=== PATIENT | female | born 1970 | race Caucasian/White ===

== ENCOUNTER 2018-07-20 12:46 | Emergency (ER) | payer OTHER ==
[~2018-07-20] VITALS: Wt 60.0 kg
[~2018-07-20 12:46] MED LIST: FURO40TA4 PO; OMEP20CA16 PO; SPIR50TA PO
[2018-07-20] MEDS ORDERED: SOD CHLORIDE 0.9% 1,000 ML IV STA (12:53)
--- NOTE | 2018-07-20 13:29 | ERD ---
ER Documentation Chief Complaint Chief Complaint Shaking episode, altered mental status HPI This is a 47-year-old female with a past medical history of alcoholic cirrhosis requiring paracenteses in the past, asthma, gastritis/GERD, previous episodes of GI bleeding who is presenting today for altered mentation. The patient reportedly went to work and seemed fine this morning. She went out to her car to go get something but did not come back and side. The coworkers were worried about her, so they found her altered in her van. An ambulance was called. In route to the hospital, the paramedics witnessed several generalized tonic-clonic shaking episodes. The patient was given a total of 10 mg of Versed IV prior to arrival. The patient is moving all extremities without difficulty, but she is confused and currently unable to answer questions. According to the patient's family, the patient has had a headache for several days. History and physical is limited secondary to altered mentation. ROS Limited secondary to altered mentation. Medications Home Meds Reported Medications Albuterol Sulfate* (Ventolin HFA*) 18 Gm Hfa.aer.ad, 2 PUFF INHALATION Q4H, #1 INHALER 07/20/18 Discontinued Reported Medications Omeprazole* (Omeprazole*) 20 Mg Capsule.dr, 20 MG PO DAILY 09/20/12 Spironolactone* (Aldactone*) 50 Mg Tablet, 50 MG PO DAILY 09/20/12 Furosemide (Lasix) 40 Mg Tab, 40 MG PO DAILY 09/20/12 Allergies Allergies: Coded Allergies: No Known Allergies (Verified Allergy, Unknown, 07/20/18) PMhx/Soc History of Surgery: Yes () Anesthesia Reaction: No Hx Neurological Disorder: No Hx Respiratory Disorders: No Hx Cardiac Disorders: No Hx Psychiatric Problems: No Hx Miscellaneous Medical Probl: Yes (EDEMA IN ABDOMEN AND FEET) Hx Alcohol Use: Yes (OCCASIONAL) Hx Substance Use: No Hx Tobacco Use: No FmHx Unable to obtain secondary to altered mentation. Physical Exam Vitals Vital Signs Date Temp Pulse Resp B/P (MAP) Pulse Ox O2 O2 Flow FiO2 Time Delivery Rate 07/20/18 85 18 154/83 100 Room Air 15:00 (106) 07/20/18 78 18 136/77 100 Room Air 14:30 (96) 07/20/18 78 14 139/57 98 Room Air 14:00 (84) 07/20/18 98.6 105 20 143/82 98 13:34 (102) Physical Exam Const: No apparent distress, well-developed, well-nourished Head: Normocephalic, Atraumatic Eyes: Normal Conjunctiva. No scleral icterus. Pupils equal, round and reactive to light ENT: Normal External Ears, Nose and Mouth. Abrasions to her tongue. Neck: Trachea midline. No palpable masses. No step-offs or deformities to the cervical spine. Resp: Clear to auscultation bilaterally, No wheezes, rales or rhonchi Cardio: Regular rate and rhythm. No murmurs, rubs or gallops Abd: Soft, non tender, non distended. Normal bowel sounds Skin: No petechiae or rashes Back: No step-offs or deformities. Ext: No cyanosis, or edema Neur: Eyes are closed. Patient makes incomprehensible sounds. Patient localizes pain. GCS 8. Result Diagram: 07/20/18 1300 07/20/18 1259 Results 24 hrs Laboratory Tests Test 07/20/18 12:59 07/20/18 13:00 07/20/18 13:20 07/20/18 13:32 Sodium Level 139 mmol/L Potassium Level 3.7 mmol/L Chloride Level 101 mmol/L Carbon Dioxide 26 mmol/L Level Anion Gap 12 Blood Urea 7 mg/dl Nitrogen Creatinine 0.49 mg/dl Est Glomerular > 60 mL/min Filtrat Rate mL/min Glucose Level 132 mg/dl Calcium Level 9.9 mg/dl Ethyl Alcohol < 10.0 mg/dl Level White Blood Count 4.0 10^3/ul Red Blood Count 4.20 10^6/ul Hemoglobin 12.8 g/dl Hematocrit 37.4 % Mean Corpuscular 89.0 fl Volume Mean Corpuscular 30.5 pg Hemoglobin Mean Corpuscular 34.2 g/dl Hemoglobin Concen t Red Cell 15.0 % Distribution Width Platelet Count 62 10^3/UL Mean Platelet 10.5 fl Volume Immature 0.500 % Granulocytes % Neutrophils % 72.6 % Lymphocytes % 16.8 % Monocytes % 8.9 % Eosinophils % 0.7 % Basophils % 0.5 % Nucleated Red 0.0 /100WBC Blood Cells % Immature 0.020 10^3/ul Granulocytes # Neutrophils # 2.9 10^3/ul Lymphocytes # 0.7 10^3/ul Monocytes # 0.4 10^3/ul Eosinophils # 0.0 10^3/ul Basophils # 0.0 10^3/ul Nucleated Red 0.0 10^3/ul Blood Cells # Urine Color YELLOW Urine Clarity CLEAR Urine pH 6.0 Urine Specific 1.012 [place] Urine Ketones TRACE mg/dL Urine Nitrite NEGATIVE mg/dL Urine Bilirubin NEGATIVE mg/dL Urine 2+ mg/dL Urobilinogen Urine Leukocyte NEGATIVE [place]/ul Esterase Urine Microscopic 4 /HPF RBC Urine Microscopic 4 /HPF WBC Urine Bacteria FEW /HPF Urine Mucus MANY /HPF Urine Hemoglobin 1+ mg/dL Urine Glucose NEGATIVE mg/dL Urine Total NEGATIVE mg/dl Protein Urine Opiates Negative Screen Urine Negative Barbiturates Urine Negative Amphetamines Screen Urine Positive Benzodiazepines Screen Urine Cocaine Negative Screen Urine Negative Cannabinoids POC Beta HCG, NEGATIVE Qualitative Test 07/20/18 13:36 Prothrombin Time 17.6 Sec Prothrombin Time 1.4 Ratio INR International 1.44 Normalized Ratio Total Bilirubin 4.9 mg/dl Direct Bilirubin 0.00 mg/dl Indirect 4.9 mg/dl Bilirubin Aspartate Amino 114 IU/L Transf (AST/SGOT) Alanine 55 IU/L Aminotransferase (ALT/SGPT) Alkaline 72 IU/L Phosphatase Ammonia 20 umol/l Total Protein 7.9 g/dl Albumin 4.0 g/dl Current Medications Medications Dose Sig/[place] Start Time Status Last (Trade) Ordered Route PRN Stop Time Admin Dose Reason Admin Sodium 1,000 ml @ Q1H STAT 07/20/18 DC 07/20/18 Chloride 1,000 mls/hr IV 12:53 14:26 07/20/18 13:52 100 ml @ ONCE ONCE 07/20/18 DC 07/20/18 Levetiracetam 400 mls/hr IVPB 15:00 15:02 07/20/18 15:00 Sodium 250 ml @ 0 Q0M ONCE 07/20/18 DC Chloride mls/hr IV* 14:44 07/20/18 14:48 Ondansetron 4 mg ER BRIDGE 07/20/18 HCl (Zofran PRN IV 15:00 Inj) NAUSEA/VOMITI 07/21/18 14:59 NG 650 mg ER BRIDGE 07/20/18 Acetaminophen PRN PO 15:00 (Tylenol .MILD PAIN 4/12/19 14:59 Tab) 1-3 OR TEMP Sodium 1,000 ml @ Q20H IV 07/20/18 DC Chloride 50 mls/hr 14:52 07/20/18 15:38 IV Flush 3 ml PER 07/20/18 (NS 3 ml) PROTOCOL IV 15:00 Ondansetron 4 mg Q6H PRN 07/20/18 HCl (Zofran IV 15:00 Inj) NAUSEA/VOMITI NG 40 mg DAILY@06 07/21/18 Pantoprazole IV 06:00 (Protonix Iv) 100 ml @ Q12 IVPB 07/20/18 Levetiracetam 400 mls/hr 23:00 Lorazepam 2 mg Q10MIN PRN 07/20/18 (Ativan) IV seizure 15:00 Labetalol 10 mg Q4 PRN IV 07/20/18 HCl sbp >160 15:00 (Labetalol) Sodium 0 ml @ 0 Q0M ONCE 07/20/18 DC Chloride mls/hr IV 15:21 07/20/18 15:22 IV Flush 10 ml STK-MED 07/20/18 DC 07/20/18 (NS 10 ml) ONCE .ROUTE 15:27 15:27 07/20/18 15:28 Sodium 100 ml @ ud STK-MED 07/20/18 DC 07/20/18 Chloride ONCE .ROUTE 15:27 15:27 07/20/18 15:28 Iohexol 100 ml @ ud STK-MED 07/20/18 DC 07/20/18 ONCE .ROUTE 15:27 15:27 07/20/18 15:28 Albuterol/ 3 ml Q2H RESP 07/20/18 Ipratropium THERAPY PRN 15:30 (Duoneb) HHN shortness of breath Sodium 1,000 ml @ Q20H IV 07/20/18 Chloride 50 mls/hr 16:00 54.5 ml @ ONCE ONCE 07/20/18 Desmopressin 109 mls/hr IVPB 17:30 Acetate 18 07/20/18 17:59 mcg/ Sodium Chloride Procedures/MDM MDM The patient's presentation warrants further investigation. Previous medical re cords, if available, were reviewed. LABS The patient's laboratory testing was obtained and reviewed. No emergent treatment was required unless described below. CBC: No E/o systemic infection or severe anemia. Leukopenia and thrombocytopenia, consistent with alcoholic liver disease. Chemistry: No E/o severe acidosis or alkalosis or renal failure or liver disease or diabetic ketoacidosis INR: Slightly elevated at 1.44 Ammonia: Within normal limits Urine: No E/o acute infection or hematuria Tox: No E/o alcohol abuse. No E/o illicit drug use. EKG EKG read by me: Rate/Rhythm: Regular rate and rhythm at a rate of 87 bpm Intervals: Normal [place]: Normal Impression: No evidence of acute ischemia or arrhythmia IMAGING Imaging and Radiology interpretation reviewed. CXR FINDINGS: The heart and mediastinum are within normal limits. The lungs are clear. There is no pleural effusion or pneumothorax. There is a healed left mid to distal clavicular fracture. IMPRESSION: No acute disease. Electronically viewed and signed by .Andrew Salter MD, MD on 07/20/2018 13:18 CT Head FINDINGS: There is acute interparenchymal hemorrhage involving the inferior and anterior aspect of right lentiform nucleus extending to the posterior aspect of frontal lobe with associated moderate peripheral edema. There is approximately 3 mm leftward midline shift. There is no hydrocephalus. There is no extra-axial fluid collection. The ventricles and sulci are normal in size and configuration. The density of the brain is otherwise normal, and the yusuf white matter differentiation appears well-preserved. The visualized paranasal sinuses and osseous structures are grossly unremarkable. IMPRESSION: Acute interparenchymal hemorrhage involving the inferior and anterior aspect of right lentiform nucleus extending to the posterior frontal lobe with associated moderate peripheral edema. Leftward midline shift of 3 mm[address] Findings discussed with Dr. Epstein at 02:30 p.m. on 07/20/2018. Electronically viewed and signed by Physician Kieran on 07/20/2018 14:49 TREATMENT/DISPOSITION The patient presents with altered mentation and concerns of a seizure event. The patient CT of the head reveals an acute right intraparenchymal hemorrhage with expansion and shift. The patient was ordered FFP, platelets and DDAVP to help with the bleeding. The patient was also given Keppra in the emergency department for seizure prophylaxis. While in the emergency department, the patient's mentation improved. She was tired but easily arousable. She was verbal and oriented x1. As the GCS is improving, I do not feel the patient requires intubation emergently. The patient's alcohol level is currently negative. She does have a history of alcoholic cirrhosis, but the family reports that she has not had any alcohol in several years. I do not suspect an alcohol withdrawal seizure. The patient is postictal in the emergency department. I have decreased suspicion for an infectious process. The patient is afebrile. The patient does have a mild leukopenia, but I suspect that this is related to her alcohol abuse over a systemic infection. I had initially intended to admit the patient to the ICU, as the radiologist did not feel that this was related to cerebral aneurysm or vascular injury. I discussed the case with the on-call neurosurgeon, Dr. Mg, who recommended that we emergently perform a CTA of the head and neck to confirm this. He read the CTA study, which was concerning for an cerebral AV malformation, which is likely the source of her bleeding. He recommended that the patient be transferred to [facility] for higher level of care. TRANSFER At this time, I feel that the patient requires admission for further evaluation and management. Dr. Mg also works at [facility] and accepted the patient to the neuro ICU at [facility]. Disclaimer: Inadvertent spelling and grammatical errors are likely due to EHR/dictation software use and do not reflect on the overall quality of patient care. Note that the electronic time recorded on this note does not necessarily reflect the actual time of the patient encounter. CRITICAL CARE NOTE Time: 40 minutes excluding all billable procedures. Treatments/Evaluations: The patient was at risk of hemodynamic compromise. Timing of critical care involved close serial monitoring, evaluation of the patient's medical record including previous records & current laboratory/imaging studies, potential interventions for prevention of hemodynamic/ cardiopulmonary/ neurologic compromise, maintaining tight fluid balance, and any discussions with the family and/or consultants regarding the patient's status and prognosis. Departure Diagnosis: Primary Impression: Intraparenchymal hemorrhage of brain Additional Impressions: Seizure Altered mental status Altered mental status type: unspecified Qualified Codes: R41.82 - Altered mental status, unspecified Alcoholic cirrhosis Ascites presence: without ascites Qualified Codes: K70.30 - Alcoholic cirrhosis of liver without ascites Leukopenia Leukopenia type: unspecified Qualified Codes: D72.819 - Decreased white blood cell count, unspecified Thrombocytopenia Cerebral AV malformation Hyperbilirubinemia Transaminitis Elevated INR Condition: Critical ARA EPSTEIN MD Jul 20, 2018 13:29
[2018-07-20] MEDS ORDERED: ALBU18HF INHALATION (14:42)
[2018-07-20] MEDS ORDERED: SOD CHLORIDE 0.9% 250 ML IV* ONE (14:44)
[2018-07-20] MEDS ORDERED: SOD CHLORIDE 0.9% 1,000 ML IV SCH (14:52)
[2018-07-20] MEDS ORDERED: LABETALOL HCL 20MG INJ IV PRN (15:00)
[2018-07-20] MEDS ORDERED: ACETAMINOPHEN 325 MG TAB PO PRN (15:00)
[2018-07-20] MEDS ORDERED: LORAZEPAM 2 MG INJ IV PRN (15:00)
[2018-07-20] MEDS ORDERED: LEVETIRACETAM 1000 MG (PMX) 100 ML IVPB ONE (15:00)
[2018-07-20] MEDS ORDERED: NACL 0.9% 3 ML SYG IV SCH (15:00)
[2018-07-20] MEDS ORDERED: ONDANSETRON 4 MG INJ IV PRN ×2 (15:00)
[2018-07-20] MEDS ORDERED: SOD CHLORIDE 0.9% 0 ML IV ONE (15:21)
[2018-07-20] MEDS ORDERED: SOD CHLORIDE 0.9% 100 ML ONE (15:27)
[2018-07-20] MEDS ORDERED: IOHEXOL 100 ML ONE (15:27)
[2018-07-20] MEDS ORDERED: ALBUTEROL/IPRATROPIUM (NEB) 3 ML AMP HHN PRN (15:30)
--- NOTE | 2018-07-20 15:46 | HP ---
Date/Time of Note Date/Time of Note DATE: 07/20/18 TIME: 15:46 Assessment/Plan VTE Prophylaxis Pharmacological prophylaxis: other Lines/Catheters IV C[facility]ter Type [facility]from [facility]): Saline Lock Assessment/Plan Hospital Course Patient is a female the past medical history significant for alcoholic liver cirrhosis, asthma, history of GI bleed, GERD who presents to [facility] for brain bleed. Patient was fine this morning and went to work as usual. Patient apparently went out to her car from other coworkers and did not return. Patient was subsequently found by passerby passed out in her van. Ambulance was called and on route to the hospital paramedics witnessed several generalized tonic-clonic seizures. Patient currently is drowsy however is able to answer yes or no questions although slowly. HPI is difficult to rece saw as patient is still mildly altered. According to patient at bedside the patient has not drink alcohol in quite a while. Objective Physical exam General: Patient is laying in bed and answers questions with yes or no very slowly Mentation: Patient is not currently oriented drowsy but arousable,, Head: Normocephalic atraumatic Eyes: EOMI, pupils reactive to light Neck: Supple, nontender, midline Respiratory: Clear to auscultation bilaterally Cardiovascular: regular rate, no obvious murmurs Gastrointestinal: non-tender to palpation, bowel sounds heard. Neurological: Moves all extremities spontaneously, but left upper extremity and left lower extremity is slightly weaker than the right. Skin: No new skin lesions Assessment and plan Acute intraparenchymal hemorrhage -Inferior and anterior aspect of the right lentiform nucleus extending to the posterior aspect of frontal lobe with edema with a 3 mm midline shift -neurosurgery, Dr. Mg, called, wants CT angio to evaluate for vascular issues before admission, if aneurysm is likely, patient will be transferred to higher level of care -The patient was mildly drowsy on evaluation however she did receive Versed on entry into the ED so unsure whether or not this is from medication or from the brain bleed -Neurology, Dr. Segura, consulted -Keep blood pressure normotensive -PPI -N.p.o. -Neurosurgery recommendations Tonic-clonic movement -Seizure versus other shaking -As needed Ativan -Keppra IV -Neurology consultation pending Alcoholic liver cirrhosis -Elevated bilirubin -Patient on spironolactone and Lasix at home, hold for now -Chronic issue, monitor closely Asthma -DuoNeb as needed GERD -PPI Disposition -Awaiting results of CT angiogram, possible transfer, otherwise, will go to our ICU with neurosurgeon and neurology consultation. Result Diagram: 07/20/18 1300 07/20/18 1259 Results 24hrs Laboratory Tests Test 07/20/18 12:59 07/20/18 13:00 07/20/18 13:20 07/20/18 13:32 Sodium Level 139 Potassium Level 3.7 Chloride Level 101 Carbon Dioxide Level 26 Anion Gap 12 Blood Urea Nitrogen 7 Creatinine 0.49 Est Glomerular > 60 Filtrat Rate mL/min Glucose Level 132 Calcium Level 9.9 Ethyl Alcohol Level < 10.0 H White Blood Count 4.0 L Red Blood Count 4.20 Hemoglobin 12.8 Hematocrit 37.4 Mean Corpuscular 89.0 Volume Mean Corpuscular 30.5 Hemoglobin Mean Corpuscular 34.2 Hemoglobin Concent Red Cell 15.0 H Distribution Width Platelet Count 62 L Mean Platelet Volume 10.5 H Immature 0.500 H Granulocytes % Neutrophils % 72.6 Lymphocytes % 16.8 Monocytes % 8.9 Eosinophils % 0.7 Basophils % 0.5 Nucleated Red Blood 0.0 Cells % Immature 0.020 Granulocytes # Neutrophils # 2.9 Lymphocytes # 0.7 L Monocytes # 0.4 Eosinophils # 0.0 Basophils # 0.0 Nucleated Red Blood 0.0 Cells # Urine Color YELLOW Urine Clarity CLEAR Urine pH 6.0 Urine Specific 1.012 [place] Urine Ketones TRACE A Urine Nitrite NEGATIVE Urine Bilirubin NEGATIVE Urine Urobilinogen 2+ H Urine Leukocyte NEGATIVE Esterase Urine Microscopic 4 RBC Urine Microscopic 4 WBC Urine Bacteria FEW A Urine Mucus MANY A Urine Hemoglobin 1+ H Urine Glucose NEGATIVE Urine Total Protein NEGATIVE Urine Opiates Screen Negative Urine Barbiturates Negative Urine Amphetamines Negative Screen Urine Positive Benzodiazepines Screen Urine Cocaine Screen Negative Urine Cannabinoids Negative POC Beta HCG, NEGATIVE Qualitative Test 07/20/18 13:36 Prothrombin Time 17.6 H Prothrombin Time 1.4 Ratio INR International 1.44 Normalized Ratio Total Bilirubin 4.9 H Direct Bilirubin 0.00 Indirect Bilirubin 4.9 H Aspartate Amino 114 H Transf (AST/SGOT) Alanine 55 Aminotransferase (AL T/SGPT) Alkaline Phosphatase 72 Ammonia 20 Total Protein 7.9 Albumin 4.0 HPI/ROS Admit Date/Time Admit Date/Time PMH/Family/Social Past Medical History Medications Current Medications Ondansetron HCl (Zofran Inj) 4 mg ER BRIDGE PRN IV NAUSEA/VOMITING; Start 07/20/18 at 15:00; Stop 07/21/18 at 14:59 Acetaminophen (Tylenol Tab) 650 mg ER BRIDGE PRN PO .MILD PAIN 1-3 OR TEMP; Start 07/20/18 at 15:00; Stop 07/21/18 at 14:59 Sodium Chloride 1,000 ml @ 50 mls/hr Q20H IV ; Start 07/20/18 at 14:52 IV Flush (NS 3 ml) 3 ml PER PROTOCOL IV ; Start 07/20/18 at 15:00 Ondansetron HCl (Zofran Inj) 4 mg Q6H PRN IV NAUSEA/VOMITING; Start 07/20/18 at 15:00 Pantoprazole (Protonix Iv) 40 mg DAILY@06 IV ; Start 07/21/18 at 06:00 Levetiracetam 100 ml @ 400 mls/hr Q12 IVPB ; Start 07/20/18 at 23:00 Lorazepam (Ativan) 2 mg Q10MIN PRN IV seizure; Start 07/20/18 at 15:00 Labetalol HCl (Labetalol) 10 mg Q4 PRN IV sbp >160; Start 07/20/18 at 15:00 Coded Allergies: No Known Allergies (Verified Allergy, Unknown, 07/20/18) Social History Smoking Status: Unknown if ever smoked Exam/Review of Systems Vital Signs Vitals Vital Signs Date Temp Pulse Resp B/P (MAP) Pulse Ox O2 O2 Flow FiO2 Time Delivery Rate 07/20/18 85 18 154/83 100 Room Air 15:00 (106) 07/20/18 98.6 13:34 DYLON LUEVANO Jul 20, 2018 15:46
[2018-07-20] MEDS ORDERED: SOD CHLORIDE 0.45% 1,000 ML IV SCH (16:00)
--- NOTE | 2018-07-20 16:07 | QN ---
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 This will require transfer to higher level of care. Discussed with ER and I will accept patient in transfer to [facility]. EZE ALEGRE MD Jul 20, 2018 16:07
[2018-07-20] MEDS ORDERED: DESMOPRESSIN 18 MCG in SOD CHLORIDE 0.9% 50 ML IVPB ONE (17:30)
[2018-07-20 19:40] VITALS: BP 167/79; PULSE 81; RESP 15
[2018-07-20] MEDS ORDERED: LEVETIRACETAM 1000 MG (PMX) 100 ML IVPB SCH (23:00)
[2018-07-21] MEDS ORDERED: PANTOPRAZOLE 40 MG INJ IV SCH (06:00)
== END 2018-07-20 19:49 | disposition short-term general hospital (02) ==
LOC: E/R 12:46 → SUATTDRO 14:51 → CANBEDREQ 17:26 → E/R 19:49
PROVIDERS: ATTEND Internal Medicine
DX: I61.8 Other nontraumatic intracerebral hemorrhage (principal); R56.9 Unspecified convulsions; R41.82 Altered mental status, unspecified; K70.30 Alcoholic cirrhosis of liver without ascites; D72.819 Decreased white blood cell count, unspecified; D69.6 Thrombocytopenia, unspecified; Q28.2 Arteriovenous malformation of cerebral vessels; E80.6 Other disorders of bilirubin metabolism; R74.0 Nonspecific elevation of levels of transaminase and lactic acid dehydrogenase [LDH]; R79.1 Abnormal coagulation profile; R40.2132 Coma scale, eyes open, to sound, at arrival to emergency department; R40.2242 Coma scale, best verbal response, confused conversation, at arrival to emergency department; R40.2352 Coma scale, best motor response, localizes pain, at arrival to emergency department; J45.909 Unspecified asthma, uncomplicated
CPT/HCPCS: 36415; 36430; 70450; 70496; 70498; 71045; 80048; 80076; 80307; 81001; 81025; 82140; 85025; 85610; 86850; 86900; 86901; 93005; 96374; 96375; 99285; J1953; J2597; J7030; J7040; P9059; Q9967